=== PATIENT | male | born 1975 | race African-American/Black ===

== ENCOUNTER 2024-10-16 19:50 | Emergency (ER) | payer OTHER ==
[~2024-10-16] VITALS: Ht 188 cm; Wt 88.5 kg
[2024-10-16] MEDS ORDERED: PROMETHAZINE HCL 25 MG TABLET PO STA (20:29)
[2024-10-16] MEDS ORDERED: ACETAMINOPHEN 500 MG TABLET ONE (20:38)
[2024-10-16] MEDS ORDERED: ONDANSETRON ODT 4 MG TAB.RAPDIS ONE (20:39)
[2024-10-16] MEDS: ACETAMINOPHEN 500 MG TABLET PO ONE (20:45)
[2024-10-16] MEDS: ONDANSETRON ODT 4 MG TAB.RAPDIS SL ONE (21:09)
[2024-10-16 21:52] VITALS: TEMP 97.9
[2024-10-16] MEDS ORDERED: FLUT16SP16 BNOSTRILS (23:09)
[2024-10-16] MEDS ORDERED: AZIT250T13 PO (23:09)
[2024-10-16] MEDS ORDERED: PROM118S5 PO (23:09)
[2024-10-17 00:15] VITALS: BP 145/88; O2SAT 96
== END 2024-10-17 00:15 | disposition home or self-care (01) ==
LOC: ER 19:50
DX: J98.8 Other specified respiratory disorders (principal); B97.89 Other viral agents as the cause of diseases classified elsewhere; R06.00 Dyspnea, unspecified; R11.0 Nausea; I10 Essential (primary) hypertension; R19.7 Diarrhea, unspecified; R51.9 Headache, unspecified; F17.200 Nicotine dependence, unspecified, uncomplicated; Z20.822 Contact with and (suspected) exposure to COVID-19
CPT/HCPCS: 99284; 71045; 87426; 87804 ×2; Q0169; A4606; A4663; A9150; Q0162